=== PATIENT | female | born 1975 | race Two or more races ===

== ENCOUNTER 2017-04-11 09:19 | Emergency (ER) | payer OTHER ==
--- NOTE | 2017-04-11 09:38 | CPEKG ---
Heart Rate: 74 RR Interval: 811 P-R Interval: 168 QRSD Interval: 92 QT Interval: 396 QTC Interval: 440 P [place]: 39 QRS [place]: -29 T Wave [place]: 4 EKG Severity - OTHERWISE NORMAL ECG - EKG Impression: SINUS RHYTHM EKG Impression: BORDERLINE LEFT AXIS DEVIATION EKG Impression: Slow R-wave progression EKG Impression: No significant change from June 04, 2016 Electronically Signed By: Paul Galaviz 15-Apr-2017 10:55:40
[2017-04-11 09:42] VITALS: RESP 16; TEMP 97.9
[2017-04-11] MEDS ORDERED: ASPIRIN 81 MG CHEWABLE TAB PO ONE (09:47)
[2017-04-11 10:04] LABS: % IMMATURE GRANULYOCYTES 0.4 % (0.0-1.1); ABSOLUTE IMMATURE GRANULOCYTES 0.03 10^3/uL (0.00-0.10); ADD DIFF? NO; ADD MORPH? YES; ADD SCAN? NO; ATYPICAL LYMPHOCYTE FLAG 10 (0-99); FRAGMENT RBC FLAG 20 (0-99); HEMATOCRIT 33.7 % (38.0-47.0); HEMOGLOBIN 10.5 g/dL (12.6-16.3); LEFT SHIFT FLG 0 (0-99); LIPEMIA HEMOLYSIS FLAG 80 (0-99); MEAN CELL HEMOGLOBIN 21.4 pg (27.9-34.1); MEAN CELL HEMOGLOBIN CONCENTR. 31.2 g/dL (32.4-36.7); MEAN CELL VOLUME 68.8 fL (81.5-99.8); MEAN PLATELET VOLUME 10.4 fL (8.7-11.7); PLATELET CLUMPS FLAG 0 (0-99); PLATELET COUNT 344 10^3/uL (150-400); RED CELL DISTRIBUTION WIDTH 16.9 % (11.5-15.2)
[2017-04-11] MEDS ORDERED: MAG HYDROX/AL HYDROX/SIMETH 30 ML UDCUP PO ONE (10:14)
[2017-04-11 10:18] LABS: ANION GAP 15 mEq/L (8-16); CALCIUM 8.8 mg/dL (8.5-10.4); CARBON DIOXIDE 20 mEq/l (22-31); CHLORIDE 108 mEq/L (97-110); CREATININE 0.5 mg/dL (0.6-1.0); GLOMERULAR FILTRATION RATE > 60; GLUCOSE 87 mg/dL (70-100); SODIUM 143 mEq/L (134-144)
[2017-04-11 10:22] LABS: ELLIPTOCYTES 1+; HYPOCHROMIA 2+; MICROCYTES 1+; PLATELET ESTIMATE ADEQUATE (ADEQ); POLYCHROMASIA 1+
[2017-04-11 10:31] LABS: TROPONIN I < 0.012 ng/mL (0-0.034)
[2017-04-11] MEDS ORDERED: HYOSCYAMINE SULFATE 0.125 MG TAB PO ONE (11:25)
--- NOTE | 2017-04-11 11:29 | EDPHY ---
H & P Stated Complaint: CP x 3 days worse today Time Seen by Provider: 04/11/17 09:46 HPI/ROS: This patient reports a 3 day history of chest pain described as burning and pressure is substernal location nonradiating. She has associated acid reflux symptoms with belching and burning. She reports compliance with Prilosec 20 mg a day for her GERD but her GERD symptoms with increased recently. She denies any recent changes in diet or other exacerbating factors. She states that her discomfort was initially intermittent lasting up to 20 minutes at a time but today the symptoms have been constant since this morning. Again no exacerbating factors for her moderate pain today. She has no other associated symptoms. ROS: Constitutional: No fevers or chills. No significant fatigue. HEENT: No URI symptoms or other complaints Pulmonary: No dyspnea. No pleuritic pain. Cardiovascular: No heart palpitations. No radiation of her chest pain. No diaphoresis. No lower extremity swelling or calf pain. GI: No belly pain. No vomiting or diarrhea Integumentary: No skin rash Neuro: No complaints Complete review of symptoms is otherwise negative. Source: Patient Exam Limitations: No limitations - Personal History LMP (Females 10-55): Now Current Tetanus/Diphtheria Vaccine: Unsure Current Tetanus Diphtheria and Acellular Pertussis (TDAP): Unsure - Medical/Surgical History PMH: Hypertension and GERD Family history is negative for premature coronary artery disease Hx Asthma: No Hx Chronic Respiratory Disease: No Hx Diabetes: No Hx Cardiac Disease: No Hx Renal Disease: No Other PMH: HTN, osteoarthritis right knee. GERD - Family History Significant Family History: No pertinent family hx - Social History Smoking Status: Never smoked Alcohol Use: None Drug Use: None - Physical Exam Exam: General Appearance: Alert, no distress. Eyes: Pupils equal and round no pallor or injection. ENT, Mouth: Mucous membranes moist. Respiratory: There are no retractions, lungs are clear to auscultation. Cardiovascular: Regular rate and rhythm. No murmur gallop rub. No JVD or peripheral edema. Gastrointestinal: Abdomen is soft and nontender, no masses, bowel sounds normal. Neurological: GCS 15 Skin: Warm and dry, no rashes. Musculoskeletal: Neck is supple nontender. Extremities are symmetrical, full range of motion. Psychiatric: Mood and affect are normal DIFFERENTIAL DIAGNOSIS: After history and physical exam differential diagnosis was considered for GERD with esophageal spasm, pneumonia, pneumothorax, coronary syndrome, PE Constitutional: Initial Vital Signs Temperature (C) 36.6 C 04/11/17 09:24 Heart Rate 71 04/11/17 09:24 Respiratory Rate 16 04/11/17 09:24 Blood Pressure 151/89 H 04/11/17 09:24 O2 Sat (%) 98 04/11/17 09:24 O2 Delivery Mode Room Air Allergies/Adverse Reactions: No Known Allergies Allergy (Verified 04/11/17 09:42) Home Medications: Medication Instructions Recorded Atenolol 04/11/17 Omeprazole 04/11/17 Omeprazole [Prilosec 20 mg] 40 mg PO DAILY #60 capsule. 04/11/17 Medical Decision Making - Diagnostics EKG Interpretation: 12 lead EKG performed shortly after arrival reveals sinus rhythm Intervals are normal [place] is normal ST segments normal Overall assessment normal EKG please refer to trace master for complete read Imaging Results: Chest x-ray: Normal by my interpretation Imaging: I viewed and interpreted images myself ED Course/Re-evaluation: GI cocktail with relief of her symptoms CBCs normal exception of minimal anemia that she has had before that is idiopathic. Electrolytes normal, D-dimer is normal, troponin is normal Presentation is consistent with GERD. I counseled patient regarding this. After workup, I find no evidence of coronary syndrome, PE, pneumothorax, pneumonia or other concerning findings. Will increase her Prilosec to 40 mg a day, and advised her to have a bland diet until she feels improvement and use Maalox in the meantime for symptoms. She will follow up with primary care physician. She understands the need to return to the emergency department should she have any significant worsening of her symptoms despite the treatment plan - Data Points Laboratory Results: Laboratory Results 04/11/17 10:00 04/11/17 10:00 Medications Given: Discontinued Medications Al Hydroxide/Mg Hydroxide (Maalox Susp) 30 ml PO EDNOW ONE Stop: 04/11/17 10:15 Last Admin: 04/11/17 10:25 Dose: 30 ml Aspirin (Aspirin) 324 mg PO EDNOW ONE Stop: 04/11/17 09:48 Last Admin: 04/11/17 10:15 Dose: 324 mg Hyoscyamine Sulfate (Levsin, Hyomax-Sl) 0.125 mg PO EDNOW ONE Stop: 04/11/17 11:26 Last Admin: 04/11/17 11:30 Dose: 0.125 mg Departure - Departure Disposition: Home, Routine, Self-Care Clinical Impression: Chest pain Qualifiers: Chest pain type: unspecified Qualified Code(s): R07.9 - Chest pain, unspecified GERD (gastroesophageal reflux disease) Qualifiers: Esophagitis presence: esophagitis presence not specified Qualified Code(s): K21.9 - Gastro-esophageal reflux disease without esophagitis Condition: Good Instructions: Chest Pain (ED), Diet for Stomach Ulcers and Gastritis (ED) Additional Instructions: Diagnosis: Noncardiac chest pain 2. GERD Plan: Increase your omeprazole to 40 mg a day [place] diet to feel improved Maalox in addition for discomfort if needed Follow up with primary care physician for any ongoing symptoms Return to the emergency department if he have any significant worsening despite treatment plan Referrals: NONE *PRIMARY CARE P,. [Primary Care Provider] - As per Instructions Prescriptions: Omeprazole [Prilosec 20 mg] 40 mg PO DAILY #60 capsule.
[2017-04-11 12:42] VITALS: BP 133/80; PULSE 66; O2SAT 97
== END 2017-04-11 12:20 | disposition home or self-care (01) ==
LOC: CED 09:19
DX: K21.9 Gastro-esophageal reflux disease without esophagitis (principal); I10 Essential (primary) hypertension
CPT/HCPCS: 71020-PO; 80048-PO; 84484-PO; 85025-PO; 85378-PO

== ENCOUNTER 2018-02-11 22:52 | Emergency (ER) | payer OTHER ==
[2018-02-11] MEDS ORDERED: fentaNYL 100 MCG/2 ML INJ IVP ONE (23:12)
[2018-02-11] MEDS ORDERED: NS 1,000 ML IV ONE (23:12)
[2018-02-11] MEDS ORDERED: KETOROLAC 30 MG/1 ML SDV IVP ONE (23:12)
--- NOTE | 2018-02-11 23:19 | EDPHY ---
H & P Time Seen by Provider: 02/11/18 22:56 HPI/ROS: CHIEF COMPLAINT: Abdominal pain HISTORY OF PRESENT ILLNESS: Patient states she has had abdominal pain for nearly a week. She states she noticed it last Thursday in the morning but did not wake her from sleep. It has been present the entire time but intermittent in severity. It is located in the right upper quadrant with some radiation around to the back. Not associated with nausea, vomiting, diarrhea. No urinary changes other than darker urine. Some chills but no fever. She went to her primary care doctor at [facility] on Thursday and labs were drawn. She has an ultrasound ordered for next Thursday but could not wait as the pain was more severe. REVIEW OF SYSTEMS: Constitutional: No fever, chills. Eyes: No discharge. ENT: No sore throat. Cardiovascular: No chest pain, no palpitations. Respiratory: No cough, no shortness of breath. Gastrointestinal: Per HPI, no vomiting. Genitourinary: No dysuria. Normal menstrual period ended yesterday Musculoskeletal: No back pain. Skin: No rashes. Neurological: No headache. General Appearance: Alert, no distress. Eyes: Pupils equal and round no pallor or injection. ENT, Mouth: Mucous membranes moist. Respiratory: There are no retractions, lungs are clear to auscultation. Cardiovascular: Regular rate and rhythm. Gastrointestinal: Abdomen is soft with diffuse tenderness to palpation most severe in the right upper quadrant. Equivocal Ponce's, no masses, bowel sounds normal. No CVA tenderness. Neurological: Awake and alert, movement all 4 extremities, no focal neurologic deficits. Skin: Warm and dry, no rashes. Musculoskeletal: Neck is supple nontender. Extremities are symmetrical, full range of motion, no edema. Psychiatric: Patient is oriented X 3, there is no agitation. Medical/surgical history: GERD, hypertension Social history: Nonsmoker, no EtOH. Smoking Status: Never smoked Constitutional: Initial Vital Signs Temperature (C) 36.6 C 02/11/18 23:05 Heart Rate 70 02/11/18 23:05 Respiratory Rate 18 02/11/18 23:05 Blood Pressure 183/101 H 02/11/18 23:05 O2 Sat (%) 98 02/11/18 23:05 O2 Delivery Mode Room Air Allergies/Adverse Reactions: No Known Allergies Allergy (Verified 02/11/18 23:02) Home Medications: Medication Instructions Recorded Atenolol 04/11/17 Aspirin [Aspirin 81mg (*)] 02/11/18 Ferrous Sulfate [Iron] 02/11/18 Multivitamins [Multivitamin (*)] 02/11/18 Naproxen Sodium [Aleve 220 MG (*)] 02/11/18 Medical Decision Making - Diagnostics Imaging Results: Abdominal ultrasound shows normal gallbladder, pancreas, kidneys, aorta. There is an unknown mass adjacent to the adrenal renal region of unclear etiology. In discussion with radiologist recommended outpatient CT scan with IV and oral contrast for further evaluation. Discussed these results with the patient in detail. Imaging: Discussed imaging studies w/ career agent Radiologist ED Course/Re-evaluation: 01:15 re-evaluation after ultrasound, patient states"feels better". Abdominal exam now nontender to palpation. Awaiting ultrasound results. Differential Diagnosis: Differential diagnosis includes but is not limited to cholecystitis, cholelithiasis, pancreatitis, fatty liver, renal stone, UTI, other intra- abdominal process. After evaluation unclear cause of patient's symptoms however small poorly identified mass in the right adrenal/renal region will require further imaging. May be causing the patient's pain. Radiology recommending dedicated CT abdomen and pelvis with oral and IV contrast for further evaluation. Patient is to call her primary care office tomorrow to arrange this as outpatient. Discussed return precautions in detail. Stable for discharge. - Data Points Laboratory Results: Laboratory Results 02/11/18 23:26 02/11/18 23:26 02/12/18 02/11/18 02/11/18 00:02 23:26 23:26 WBC RBC Hgb Hct MCV MCH MCHC RDW Plt Count MPV Neut % (Auto) Lymph % (Auto) [place] % (Auto) Eos % (Auto) Baso % (Auto) Nucleat RBC Rel Count Absolute Neuts (auto) Absolute Lymphs (auto) Absolute Monos (auto) Absolute Eos (auto) Absolute Basos (auto) Absolute Nucleated RBC Immature Gran % Immature Gran # Sodium 138 mEq/L mEq/L (135-145) Potassium 3.5 mEq/L mEq/L (3.5-5.2) Chloride 104 mEq/L mEq/L (97-110) Carbon Dioxide 24 mEq/l mEq/l (22-31) Anion Gap 10 mEq/L mEq/L (8-16) BUN 16 mg/dL mg/dL (7-23) Creatinine 0.5 mg/dL L mg/dL (0.6-1.0) Estimated GFR > 60 Glucose 106 mg/dL H mg/dL (70-100) Calcium 9.1 mg/dL mg/dL (8.5-10.4) Total Bilirubin 0.3 mg/dL mg/dL (0.1-1.4) Conjugated Bilirubin 0.3 mg/dL mg/dL (0.0-0.5) Unconjugated Bilirubin 0.0 mg/dL mg/dL (0.0-1.1) AST 16 IU/L IU/L (14-46) ALT 27 IU/L IU/L (9-52) Alkaline Phosphatase 60 IU/L IU/L (38-126) Total Protein 6.7 g/dL g/dL (6.3-8.2) Albumin 3.5 g/dL g/dL (3.5-5.0) Lipase 122 IU/L IU/L (23-300) Beta HCG, Qual NEGATIVE Urine Color YELLOW Urine Appearance CLEAR Urine pH 6.0 (5.0-7.5) Ur Specific [place] <= 1.005 (1.002-1.030) Urine Protein NEGATIVE (NEGATIVE) Urine Ketones NEGATIVE (NEGATIVE) Urine Blood 1+ H (NEGATIVE) Urine Nitrate NEGATIVE (NEGATIVE) Urine Bilirubin NEGATIVE (NEGATIVE) Urine Urobilinogen 0.2 EU EU (0.2-1.0) Ur Leukocyte Esterase NEGATIVE (NEGATIVE) Urine RBC 3-5 /hpf H /hpf (0-3) Urine WBC NONE SEEN /hpf /hpf (0-3) Ur Epithelial Cells TRACE /lpf /lpf (NONE-1+) Urine Glucose NEGATIVE (NEGATIVE) 02/11/18 23:26 WBC 6.84 10^3/uL 10^3/uL (3.80-9.50) RBC 4.32 10^6/uL 10^6/uL (4.18-5.33) Hgb 10.6 g/dL L g/dL (12.6-16.3) Hct 32.4 % L % (38.0-47.0) MCV 75.0 fL L fL (81.5-99.8) MCH 24.5 pg L pg (27.9-34.1) MCHC 32.7 g/dL g/dL (32.4-36.7) RDW 15.3 % H % (11.5-15.2) Plt Count 342 10^3/uL 10^3/uL (150-400) MPV 10.5 fL fL (8.7-11.7) Neut % (Auto) 60.6 % % (39.3-74.2) Lymph % (Auto) 28.2 % % (15.0-45.0) [place] % (Auto) 7.3 % % (4.5-13.0) Eos % (Auto) 3.4 % % (0.6-7.6) Baso % (Auto) 0.4 % % (0.3-1.7) Nucleat RBC Rel Count 0.0 % % (0.0-0.2) Absolute Neuts (auto) 4.14 10^3/uL 10^3/uL (1.70-6.50) Absolute Lymphs (auto) 1.93 10^3/uL 10^3/uL (1.00-3.00) Absolute Monos (auto) 0.50 10^3/uL 10^3/uL (0.30-0.80) Absolute Eos (auto) 0.23 10^3/uL 10^3/uL (0.03-0.40) Absolute Basos (auto) 0.03 10^3/uL 10^3/uL (0.02-0.10) Absolute Nucleated RBC 0.00 10^3/uL 10^3/uL (0-0.01) Immature Gran % 0.1 % % (0.0-1.1) Immature Gran # 0.01 10^3/uL 10^3/uL (0.00-0.10) Sodium Potassium Chloride Carbon Dioxide Anion Gap BUN Creatinine Estimated GFR Glucose Calcium Total Bilirubin Conjugated Bilirubin Unconjugated Bilirubin AST ALT Alkaline Phosphatase Total Protein Albumin Lipase Beta HCG, Qual Urine Color Urine Appearance Urine pH Ur Specific [place] Urine Protein Urine Ketones Urine Blood Urine Nitrate Urine Bilirubin Urine Urobilinogen Ur Leukocyte Esterase Urine RBC Urine WBC Ur Epithelial Cells Urine Glucose Medications Given: Discontinued Medications Fentanyl (Sublimaze) 50 mcg IVP EDNOW ONE Stop: 02/11/18 23:13 Last Admin: 05/10/18 23:41 Dose: 50 mcg Sodium Chloride (Ns) 1,000 mls @ 0 mls/hr IV EDNOW ONE; Wide Open PRN Reason: Protocol Stop: 02/11/18 23:13 Last Admin: 02/11/18 23:42 Dose: 1,000 mls Ketorolac Tromethamine (Toradol) 30 mg IVP EDNOW ONE Stop: 02/11/18 23:13 Last Admin: 02/11/18 23:41 Dose: 30 mg Departure - Departure Clinical Impression: Abdominal pain Qualifiers: Abdominal location: right upper quadrant Qualified Code(s): R10.11 - Right upper quadrant pain Condition: Good Instructions: Acute Abdominal Pain (ED) Additional Instructions: Call your doctor tomorrow morning and arrange to get a CT scan of the abdomen and pelvis with oral and IV contrast. You received the ultrasound in the emergency department tonight and do not need another 1 on Thursday. Return to the emergency department or see your primary care right away if you develop nausea, vomiting, fever or increased abdominal pain or other concerning new symptoms. Referrals: Patient,NotPresent [Primary Care Provider] - As per Instructions ERICKA PETER. [Clinic] - As per Instructions
[2018-02-11 23:38] LABS: PLATELET COUNT 342 10^3/uL (150-400)
[2018-02-12 01:29] VITALS: BP 128/74
== END 2018-02-12 01:43 | disposition home or self-care (01) ==
LOC: CED 22:52
DX: R10.11 Right upper quadrant pain (principal); E86.9 Volume depletion, unspecified; I10 Essential (primary) hypertension; Z79.82 Long term (current) use of aspirin
CPT/HCPCS: 76705-PO; 80048-PO; 80076-PO; 81003-PO; 81015-PO; 83690-PO; 84703-PO; 85025-PO; 96374; J1885; J3010

== ENCOUNTER 2018-04-26 18:11 | Emergency (ER) | payer OTHER ==
--- NOTE | 2018-04-26 18:30 | CPEKG ---
Heart Rate: 84 RR Interval: 714 P-R Interval: 172 QRSD Interval: 90 QT Interval: 380 QTC Interval: 450 P [place]: 23 QRS [place]: -23 T Wave [place]: 6 EKG Severity - ABNORMAL ECG - EKG Impression: SINUS RHYTHM EKG Impression: LEFT VENTRICULAR HYPERTROPHY Electronically Signed By: Gutierrez Marx 28-Apr-2018 08:01:29
[2018-04-26] MEDS ORDERED: KETOROLAC 30 MG/1 ML SDV IVP ONE (19:51)
--- NOTE | 2018-04-26 20:25 | EDPHY ---
H & P Stated Complaint: Pt. states CP upper chest and into throat. had biopsy today rt back Time Seen by Provider: 04/26/18 18:29 HPI/ROS: 42 yo F presents c/o upper chest and throat pain that began this evening. Pt had an adrenal mass biopsy today on the right. Review of systems as per hpi General no fever no chills no weakness HEENT no eye pain no eye discharge. No eye redness, no sore throat Respiratory no cough, no shortness of breath Cardiac pos chest pain, no peripheral edema GI no abdominal pain, no diarrhea, no constipation, no nausea, no vomiting no flank pain, no hematuria, no dysuria Musculoskeletal no myalgias, no joint pain Heme no easy bruising, no easy bleeding Endo no polyuria, no polydipsia Skin no rashes, no pruritus Neuro no syncope, no dizziness, no headaches Psych is no suicidal ideation, no homicidal ideation the Source: Patient Exam Limitations: No limitations, Language barrier - Personal History LMP (Females 10-55): 8-14 Days Ago - Medical/Surgical History Hx Asthma: No Hx Chronic Respiratory Disease: No Hx Diabetes: No Hx Cardiac Disease: Yes Hx Renal Disease: No Hx Cirrhosis: No Hx Alcoholism: No Hx HIV/AIDS: No Hx Splenectomy or Spleen Trauma: No Other PMH: HTN, osteoarthritis right knee, anemia,. GERD - Family History Significant Family History: No pertinent family hx - Social History Smoking Status: Never smoked Alcohol Use: None Drug Use: None - Physical Exam Exam: 42 yo F alert and oriented in nad non toxic appearance at,nc eomi, anicteric neck supple lungs cta bilat heart rrr abd non dist nabs soft nt back right cva area with small bx site, no active bleeding ext no cce Constitutional: Initial Vital Signs Temperature (C) 36.5 C 04/26/18 18:30 Heart Rate 76 04/26/18 18:30 Respiratory Rate 18 04/26/18 18:30 Blood Pressure 122/79 H 04/26/18 18:30 O2 Sat (%) 96 04/26/18 18:30 O2 Delivery Mode Room Air Allergies/Adverse Reactions: shellfish derived Allergy (Verified 04/26/18 20:46) Home Medications: Medication Instructions Recorded Ferrous Sulfate 04/26/18 Glucosamine 04/26/18 HCTZ (*) 04/26/18 Metoprolol Tartrate 04/26/18 Multivitamins 04/26/18 Naproxen 04/26/18 Omeprazole 04/26/18 Medical Decision Making - Diagnostics Imaging Results: Imaging Impressions Chest X-Ray 04/26/18 18:44 Impression: Normal. Abdomen CT 04/26/18 21:04 Impression: Consistent with postbiopsy hemorrhage from the right adrenal mass. If there is concern for a bowel injury, then recommend repeat CT after oral and rectal contrast is administered. Follow-up CT may be useful to ensure lack of abscess formation, considering the clustered gas bubbles in the suprarenal region, which could possibly be related to injected Gelfoam after the biopsy procedure. Results called and discussed with Yudith Xie MD, at 04/26/2018 21:50 General information for patients regarding this examination can be found at [email or web address]. If you have questions or comments about this report, please contact me at (hospital) or [phone] (cell). ED Course/Re-evaluation: pt seen and evaluated for upper chest and throat pain following a bx done today on a right adrenal mass EKG nsr troponin neg CXR no pneumo, no pneumomediastinum chest discomfort resolved spontaneously cbc, bmp , lactate all wnl urine sp gr 1030, ketones pt given one liter normal saline for dehydration given toradol 30 mg ivp for pain pt with complete resolution of her pain ct abd and pelvis with contrast to further elucidate area of bx and to rule out significant hemmorhage pos hemmorhage at adrenal gland on right with max diameter 5 cm original mass was 3cm I discussed the case with the Interventional Radiologist excellence consultant at [facility], where the patient had her procedure done. He stated the adrenal gland is very vascular and that after adrenal or renal bx they often expect a significant hematoma greater than 5 cm. Imp atypical chest pain, ? irritation of diaphragm as a cause post procedural hemmrhage at right adrenal gland Plan dc home follow with your pcp go to [facility] if your pain is worsening Differential Diagnosis: Differential diagnosis considered but not limited to: Myocardial infarction, pneumothorax, pneumomediastinum, pleural effusion, intraperitoneal hemorrhage, intraperitoneal free air - Data Points Laboratory Results: Laboratory Results 04/26/18 19:48 04/26/18 04/26/18 04/26/18 19:48 19:25 19:16 WBC 11.52 10^3/uL H 10^3/uL (3.80-9.50) RBC 4.64 10^6/uL 10^6/uL (4.18-5.33) Hgb 11.3 g/dL L g/dL (12.6-16.3) Hct 35.4 % L % (38.0-47.0) MCV 76.3 fL L fL (81.5-99.8) MCH 24.4 pg L pg (27.9-34.1) MCHC 31.9 g/dL L g/dL (32.4-36.7) RDW 16.1 % H % (11.5-15.2) Plt Count 314 10^3/uL 10^3/uL (150-400) MPV 11.4 fL fL (8.7-11.7) Neut % (Auto) 78.1 % H % (39.3-74.2) Lymph % (Auto) 13.4 % L % (15.0-45.0) Real % (Auto) 6.0 % % (4.5-13.0) Eos % (Auto) 2.0 % % (0.6-7.6) Baso % (Auto) 0.2 % L % (0.3-1.7) Nucleat RBC Rel Count 0.0 % % (0.0-0.2) Absolute Neuts (auto) 9.00 10^3/uL H 10^3/uL (1.70-6.50) Absolute Lymphs (auto) 1.54 10^3/uL 10^3/uL (1.00-3.00) Absolute Monos (auto) 0.69 10^3/uL 10^3/uL (0.30-0.80) Absolute Eos (auto) 0.23 10^3/uL 10^3/uL (0.03-0.40) Absolute Basos (auto) 0.02 10^3/uL 10^3/uL (0.02-0.10) Absolute Nucleated RBC 0.00 10^3/uL 10^3/uL (0-0.01) Immature Gran % 0.3 % % (0.0-1.1) Immature Gran # 0.04 10^3/uL 10^3/uL (0.00-0.10) POC Blood Source Patient Temperature POC VBG pH POC VBG pCO2 POC VBG pO2 POC VBG HCO3 POC VBG Total CO2 POC VBG Base Excess POC Mix VBG O2 Sat POC Sodium 143 mEq/L mEq/L (135-145) POC Potassium 3.2 mEq/L L mEq/L (3.3-5.0) POC Chloride 107.0 mEq/L mEq/L (97-110) POC Total CO2 25 mEq/L mEq/L (22-31) POC BUN 7 mg/dL mg/dL (7-23) POC Creatinine 0.7 mg/dL mg/dL (0.6-1.0) POC Glucose 113 mg/dL H mg/dL (70-100) POC Lactic Acid Nic POC Calcium 9.2 mg/dL mg/dL (8.5-10.4) POC Total Bilirubin 0.6 mg/dL mg/dL (0.1-1.4) POC AST 25 IU/L IU/L (14-46) POC ALT 19 IU/L IU/L (9-52) POC Alk Phosphatase 60 IU/L IU/L (38-126) POC Troponin I 0.00 ng/mL ng/mL (0.00-0.08) POC Total Protein 6.5 g/dL g/dL (6.3-8.2) POC Albumin 3.3 g/dL L g/dL (3.5-5.0) 04/26/18 19:14 WBC RBC Hgb Hct MCV MCH MCHC RDW Plt Count MPV Neut % (Auto) Lymph % (Auto) Real % (Auto) Eos % (Auto) Baso % (Auto) Nucleat RBC Rel Count Absolute Neuts (auto) Absolute Lymphs (auto) Absolute Monos (auto) Absolute Eos (auto) Absolute Basos (auto) Absolute Nucleated RBC Immature Gran % Immature Gran # POC Blood Source VENOUS Patient Temperature 36.5 DEGREES DEGREES POC VBG pH 7.42 (7.31-7.42) POC VBG pCO2 39 mmHg L mmHg (40-44) POC VBG pO2 58 mmHg H mmHg (35-40) POC VBG HCO3 25 mEq/L mEq/L (22-26) POC VBG Total CO2 26 mEq/L mEq/L (21-27) POC VBG Base Excess 1.0 mEq/L mEq/L (-2.5-2.5) POC Mix VBG O2 Sat 91 % H % (65-75) POC Sodium POC Potassium POC Chloride POC Total CO2 POC BUN POC Creatinine POC Glucose POC Lactic Acid Nic 1.7 mmol/L mmol/L (0.7-2.1) POC Calcium POC Total Bilirubin POC AST POC ALT POC Alk Phosphatase POC Troponin I POC Total Protein POC Albumin Medications Given: Discontinued Medications Sodium Chloride (Ns) 1,000 mls @ 0 mls/hr IV ONCE ONE PRN Reason: Wide Open Stop: 04/26/18 21:13 Last Admin: 04/26/18 21:32 Dose: 1,000 mls Ketorolac Tromethamine (Toradol) 30 mg IVP EDNOW ONE Stop: 04/26/18 19:52 Last Admin: 04/26/18 20:11 Dose: 30 mg Point of Care Test Results: Chemistry 04/26/18 04/26/18 19:25 19:16 POC Sodium 143 mEq/L mEq/L (135-145) POC Potassium 3.2 mEq/L L mEq/L (3.3-5.0) POC Chloride 107.0 mEq/L mEq/L (97-110) POC Total CO2 25 mEq/L mEq/L (22-31) POC BUN 7 mg/dL mg/dL (7-23) POC Creatinine 0.7 mg/dL mg/dL (0.6-1.0) POC Glucose 113 mg/dL H mg/dL (70-100) POC Calcium 9.2 mg/dL mg/dL (8.5-10.4) POC Total Bilirubin 0.6 mg/dL mg/dL (0.1-1.4) POC AST 25 IU/L IU/L (14-46) POC ALT 19 IU/L IU/L (9-52) POC Alk Phosphatase 60 IU/L IU/L (38-126) POC Troponin I 0.00 ng/mL ng/mL (0.00-0.08) POC Total Protein 6.5 g/dL g/dL (6.3-8.2) POC Albumin 3.3 g/dL L g/dL (3.5-5.0) Blood Gas/Lactic Acid-Arterial 04/26/18 19:14 POC Blood Source VENOUS Blood Gas/Lactic Acid-Venous 04/26/18 19:14 POC VBG pH 7.42 (7.31-7.42) POC VBG pCO2 39 mmHg L mmHg (40-44) POC VBG pO2 58 mmHg H mmHg (35-40) POC VBG HCO3 25 mEq/L mEq/L (22-26) POC VBG Total CO2 26 mEq/L mEq/L (21-27) POC VBG Base Excess 1.0 mEq/L mEq/L (-2.5-2.5) POC Mix VBG O2 Sat 91 % H % (65-75) POC Lactic Acid Nic 1.7 mmol/L mmol/L (0.7-2.1) Urine Collection Date 04/26/18 Collection Time 20:55 HCG Results Negative Urine Dip Collection Date 04/26/18 Collection Time 20:55 Specific [place] (1.002-1.030) 1.030 PH (5.0-7.5) 6.0 Leukocytes (Negative) Negative Nitrites (Negative) Negative Protein (Negative) Trace Glucose (Negative) Negative Ketones (Negative) 1+ Urobilnogen (0.2-1.0 EU) 0.2 Bilirubin (Negative) Test Not Performed Blood (Negative) Negative Departure - Departure Disposition: Home, Routine, Self-Care Clinical Impression: Atypical chest pain, Post procedure discomfort Condition: Good Instructions: Chest Pain (ED) Referrals: ROME BARNETT [Other] - As per Instructions
[2018-04-26 20:34] LABS: PLATELET COUNT 314 10^3/uL (150-400)
[2018-04-26] MEDS ORDERED: NS 1,000 ML IV ONE (21:12)
[2018-04-26] MEDS ORDERED: IOPAMIDOL (ISOVUE-300) 100 ML BTL ONE (21:14)
[2018-04-26 22:50] VITALS: BP 135/77
== END 2018-04-26 23:13 | disposition home or self-care (01) ==
LOC: CED 18:11
DX: G89.18 Other acute postprocedural pain (principal); R07.89 Other chest pain; I10 Essential (primary) hypertension
CPT/HCPCS: 71046-PO; 74177-PO; 80053-PO; 83605-PO; 84484-PO; 96374; J1885; Q9967